=== PATIENT | female | born 1955 | race Asian ===

== ENCOUNTER 2022-12-08 18:07 | Emergency (ER) | payer MEDICARE, OTHER ==
[~2022-12-08] VITALS: Ht 154.9 cm; Wt 61.2 kg
[2022-12-08] MEDS ORDERED: ACETAMINOPHEN ES 500 MG TABLET ONE (20:22)
[2022-12-08] MEDS: ACETAMINOPHEN 325 MG TABLET PO ONE (20:23)
[2022-12-08 23:03] VITALS: BP 149/93; TEMP 98.1; O2SAT 99
== END 2022-12-08 22:50 | disposition home or self-care (01) ==
LOC: ER 18:11
DX: M25.512 Pain in left shoulder (principal); M54.2 Cervicalgia; M79.642 Pain in left hand; M25.562 Pain in left knee; I10 Essential (primary) hypertension; E78.5 Hyperlipidemia, unspecified; V89.2XXA Person injured in unspecified motor-vehicle accident, traffic, initial encounter; Y93.89 Activity, other specified; Y92.89 Other specified places as the place of occurrence of the external cause; Y99.8 Other external cause status
CPT/HCPCS: 70450-TC; 71045-TC; 72125-TC; 72128-TC; 73030-TC; 73130-TC; 73564-TC